=== PATIENT | male | born 1980 | race American Indian/Alaskan Native ===

== ENCOUNTER 2017-07-11 01:48 | Emergency (ER) | payer OTHER ==
[2017-07-11 01:54] VITALS: BP 111/41
[2017-07-11] MEDS ORDERED: MOTRIN PO ONE (05:52)
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
== END 2017-07-11 06:15 | disposition home or self-care (01) ==
LOC: ED 01:48
DX: M54.5 Low back pain (principal); V49.49XA Driver injured in collision with other motor vehicles in traffic accident, initial encounter; Y93.89 Activity, other specified; Y92.89 Other specified places as the place of occurrence of the external cause; Y99.8 Other external cause status
CPT/HCPCS: 99282

== ENCOUNTER 2017-10-18 21:53 | Emergency (ER) | payer OTHER ==
[2017-10-19 01:19] LABS: Basophils % (Auto) 0.6 % (0.0-1.8); Eosinophils # (Auto) 0.2 K/mm3 (0.0-0.4); Eosinophils % (Auto) 2.7 % (0.0-4.3); Hematocrit 43.8 % (35.5-45.6); Hemoglobin 14.4 gm/dl (11.8-15.2); Lymphocytes # (Auto) 1.7 K/mm3 (1.2-5.4); Mean Corpuscular HGB Conc 33 % (32-34); Mean Corpuscular Hemoglobin 28 pg (28-32); Mean Corpuscular Volume 86 fl (84-94); Monocytes # (Auto) 0.6 K/mm3 (0.0-0.8); Monocytes % (Auto) 10.1 % (0.0-7.3); Platelet Count 245 K/mm3 (140-440); Red Blood Count 5.09 M/mm3 (3.65-5.03)
[2017-10-19 01:45] LABS: Alanine Aminotransferase 24 units/L (7-56); Albumin 4.3 g/dL (3.9-5); BUN/Creatinine Ratio 14; Blood Urea Nitrogen 11 mg/dL (9-20); Calcium 8.8 mg/dL (8.4-10.2); Hemolysis Index 3
--- NOTE | 2017-10-19 02:52 | XRay Report ---
FINAL REPORT EXAM: XR ABD SERIES W CXR 1V HISTORY: abd pain TECHNIQUE: A PA view the chest was obtained along with supine and upright views of the abdomen. FINDINGS: The chest reveals normal heart size and mediastinum. The lungs are clear. Pleural fluid is not seen. The skeletal structures appear well maintained. The abdominal bowel gas pattern is unremarkable. There is a moderate amount retained feces in the colon. There are no suspicious calcifications. The skeletal structures are well-maintained. IMPRESSION: Within normal limits.
[2017-10-19 02:55] LABS: Bilirubin,Urine NEG (Negative); Blood,Urine MOD (Negative); Color,Urine Yellow (Yellow); Mucus,Urine FEW /HPF; Protein,Urine <15 mg/dL mg/dL (Negative)
--- NOTE | 2017-10-19 03:08 | Emergency Department Report ---
ED Abdominal Pain HPI - General Chief Complaint: Abdominal Pain Stated Complaint: ABD PAIN Time Seen by Provider: 10/19/17 02:10 Source: patient Mode of arrival: Ambulatory Limitations: No Limitations - History of Present Illness Initial Comments: Patient is a 37-year-old black male who is presenting with some sharp abdominal pain. Patient states that is now improving however was 10 out of 10 when it was at its height. Patient states was a generalized pain all over the abdomen there is no radiation patient denies any nausea vomiting diarrhea. Patient states he has no fever. The patient has not had pain like this before. - Related Data Previous Rx's Medication Instructions Recorded Last Taken Type Cyclobenzaprine [Flexeril] 10 mg PO TID PRN #12 tablet 07/11/17 Unknown Rx Ibuprofen [Motrin] 800 mg PO Q8HR PRN #30 tablet 07/11/17 Unknown Rx Dicyclomine [Bentyl] 10 mg PO QID #15 capsule 10/19/17 Unknown Rx Docusate Sodium [Colace] 100 mg PO BID #30 capsule 10/19/17 Unknown Rx Allergies Allergy/AdvReac Type Severity Reaction Status Date / Time No Known Allergies Allergy Unverified 07/11/17 02:13 ED Review of Systems ROS: Stated complaint: ABD PAIN Other details as noted in HPI Comment: All other systems reviewed and negative ED Past Medical Hx - Past Medical History Previous Medical History?: No - Surgical History Past Surgical History?: No - Social History Smoking Status: Current Every Day Smoker Substance Use Type: None - Medications Home Medications: Home Medications Medication Instructions Recorded Confirmed Last Taken Type Cyclobenzaprine [Flexeril] 10 mg PO TID PRN #12 tablet 07/11/17 Unknown Rx Ibuprofen [Motrin] 800 mg PO Q8HR PRN #30 tablet 07/11/17 Unknown Rx Dicyclomine [Bentyl] 10 mg PO QID #15 capsule 10/19/17 Unknown Rx Docusate Sodium [Colace] 100 mg PO BID #30 capsule 10/19/17 Unknown Rx ED Physical Exam - General Limitations: No Limitations General appearance: alert, in no apparent distress - Head Head exam: Present: atraumatic, normocephalic - Eye Eye exam: Present: normal appearance - ENT ENT exam: Present: mucous membranes moist - Neck Neck exam: Present: normal inspection - Respiratory Respiratory exam: Present: normal lung sounds bilaterally. Absent: respiratory distress, wheezes, rales, rhonchi - Cardiovascular Cardiovascular Exam: Present: regular rate, normal rhythm. Absent: systolic murmur, diastolic murmur, rubs, gallop - GI/Abdominal GI/Abdominal exam: Present: soft, normal bowel sounds. Absent: distended, tenderness, guarding, rebound - Rectal Rectal exam: Present: deferred - Extremities Exam Extremities exam: Present: normal inspection - Back Exam Back exam: Present: normal inspection - Neurological Exam Neurological exam: Present: alert, oriented X3 - Psychiatric Psychiatric exam: Present: normal affect, normal mood - Skin Skin exam: Present: warm, dry, intact, normal color. Absent: rash ED Course Vital Signs 10/18/17 10/19/17 22:24 03:01 Temperature 98.9 F Pulse Rate 64 Respiratory 16 Rate Blood Pressure 121/56 O2 Sat by Pulse 97 98 Oximetry ED Medical Decision Making - Lab Data Result diagrams: 10/19/17 00:19 10/19/17 00:19 - Radiology Data interpreted by me: Patient does have some areas a retained stool as well as some large pockets of gas specifically in the left upper quadrant and in the rectum. Patient: ALFONSO GONZALES MR#: [id number] : 1980 Acct:[id number] Age/Sex: 37 / M ADM Date: 10/18/17 Loc: ED Attending Dr: Ordering Physician: SYDNEY BUSTAMANTE MD Date of Service: 10/19/17 Procedure(s): XR abd series w cxr 1V Accession Number(s): [id number] cc: SYDNEY BUSTAMANTE MD Fluoro Time In Minutes: FINAL REPORT EXAM: XR ABD SERIES W CXR 1V HISTORY: abd pain TECHNIQUE: A PA view the chest was obtained along with supine and upright views of the abdomen. FINDINGS: The chest reveals normal heart size and mediastinum. The lungs are clear. Pleural fluid is not seen. The skeletal structures appear well maintained. The abdominal bowel gas pattern is unremarkable. There is a moderate amount retained feces in the colon. There are no suspicious calcifications. The skeletal structures are well-maintained. IMPRESSION: Within normal limits. - Medical Decision Making Patient laboratory studies are within normal limits the patient is most likely had some pain secondary to gas and will be discharged home. Critical care attestation.: If time is entered above; I have spent that time in minutes in the direct care of this critically ill patient, excluding procedure time. ED Disposition Clinical Impression: Gas pain Disposition: DC-01 TO HOME OR SELFCARE Is pt being admited?: No Does the pt Need Aspirin: No Condition: Stable Instructions: Acute Abdominal Pain (ED), Gas and Bloating (ED) Referrals: PRIMARY CARE, [Primary Care Provider] - 3-5 Days
[2017-10-19 03:59] VITALS: BP 121/64
== END 2017-10-19 03:59 | disposition home or self-care (01) ==
LOC: ED 21:53
DX: R10.84 Generalized abdominal pain (principal); F17.200 Nicotine dependence, unspecified, uncomplicated
CPT/HCPCS: 36415; 74022; 80053; 81001; 85025; 99284